=== PATIENT | female | born 1975 | race Caucasian/White ===

== ENCOUNTER 2019-03-14 10:29 | Emergency (ER) | payer OTHER | END 2019-03-14 11:15 | disposition home or self-care (01) | LOC: FTE 10:29 | DX: H60.501 Unspecified acute noninfective otitis externa, right ear (principal); E11.9 Type 2 diabetes mellitus without complications | CPT/HCPCS: 99283; Z7502 ==

== ENCOUNTER 2019-03-15 04:27 | Emergency (ER) | payer OTHER ==
[2019-03-15] MEDS: ONDANSETRON (ODT) 4 MG TAB ODT (05:16)
[2019-03-15] MEDS: HYDROCODONE/APAP (10/325) TAB PO (05:16)
== END 2019-03-15 05:37 | disposition home or self-care (01) ==
LOC: FTE 04:27
DX: H60.91 Unspecified otitis externa, right ear (principal)
CPT/HCPCS: 99283; Z7502